=== PATIENT | male | born 1965 | race Two or more races ===

== ENCOUNTER → 2024-03-27 06:16 | Day surgery (SDC) | payer OTHER, SELFPAY ==
[2024-03-27] VITALS (21 sets, daily range): BP systolic 94–135; BP diastolic 64–95; BMI 21.8
[2024-03-27 07:02] LABS: Hematocrit 43.8 % (39.0-52.0); Hemoglobin 15.1 g/dL (13.0-18.0); Mean Corp Hgb Conc. 34.5 g/dL (33.0-37.0); Mean Corpuscular Hgb 29.5 pg (27.0-31.0); Mean Corpuscular Volume 85.5 fL (80.0-94.0); Mean Platelet Volume 9.7 fL (7.4-10.4); Platelet Count 398 10^3/uL (130-400); Red Blood Cell Count 5.12 10^6/uL (4.70-6.10); Red Cell Dist. Width 12.8 % (11.5-14.5)
[2024-03-27 07:12] LABS: APTT 27.2 Sec (23.4-35.0); INR 1.03; PT 13.5 Sec (11.4-14.6)
[2024-03-27 07:26] LABS: Blood Urea Nitrogen 30 mg/dl (9-20); Calcium 10.2 mg/dl (8.4-10.2); Carbon Dioxide 32 mmol/L (22-30); Chloride 95 mmol/L (98-107); Estimated Creatinine Clearance 105 ml/min; Glucose 192 mg/dl (70-99); Potassium 4.6 mmol/L (3.5-5.1); Sodium 135 mmol/L (135-145); eGFR > 60.00
--- NOTE | 2024-03-27 07:48 | W.SUR.PREOP ---
Pre-Operative Surgical Note
-
I have examined this patient prior to the performance of the scheduled procedure.
The patient's condition is unchanged from the time of the current History and
Physical and the patient is able to undergo the scheduled procedure.
[2024-03-27 09:17] LABS: ACT-LR - POC 200 Seconds (116-155)
[2024-03-27 10:24] LABS: ACT-LR - POC 231 Seconds (116-155)
[2024-03-27 10:42] LABS: ALT (SGPT) 21 U/L (0-50); AST (SGOT) 33 U/L (17-59); Albumin 4.3 g/dl (3.5-5.0); Alkaline Phosphatase 198 U/L (38-126); Direct Bilirubin 0.4 mg/dl (0.0-0.4); Total Bilirubin 0.5 mg/dl (0.2-1.3); Total Protein 8.5 g/dl (6.3-8.2)
[2024-03-27 11:00] LABS: Glucose - Point of Care 213 mg/dl (70-99)
[2024-03-27] MEDS: NOVOLOG vial 2 UNITS SC (11:31)
[2024-03-27] MEDS: PLAVIX 300 MG PO (12:08)
[2024-03-27] MEDS: NSS 1000 IV (12:09)
--- NOTE | 2024-03-27 12:10 | SUR.PHASEI ---
Patient transferred to lab director, bedside and telephone report to ROGELIO. left groin sheath site benign. B/L circulation to both feet with doppler. Patient comfortable except for mild discomfort in rt leg. VSS. Plavix to be given in lab director. E C
Gee TALBERT BSN.
[2024-03-27] MEDS: NOVOLOG vial 4 UNITS SC (15:42)
[2024-03-27 15:48] LABS: Glucose - Point of Care 283 mg/dl (70-99)
--- NOTE | 2024-03-27 17:06 | OR.RPT ---
Operative Report
Operative Report
Date of Operation: 03/27/2024
Pre Op Diagnosis:
1.) Critical limb threatening ischemia right lower extremity
2.) Recent open transmetatarsal amputation
3.) Poorly controlled diabetes
4.) Active smoking
Post Op Diagnosis:
1.) Critical limb threatening ischemia right lower extremity
2.) Recent open transmetatarsal amputation
3.) Poorly controlled diabetes
4.) Active smoking
Procedure:
1.) Intravascular lithotripsy to tibioperoneal trunk (3.5 mm x 80 mm E8 shockwave balloon)
2.) Intravascular lithotripsy to proximal peroneal artery (3.5 mm x 80 mm E8 shockwave balloon)
3.) Intravascular lithotripsy to proximal posterior tibial artery (3.5 mm x 80 mm E8 shockwave balloon)
4.) Retrograde balloon angioplasty of proximal posterior tibial artery stenosis (3 mm x 80 mm angioplasty balloon)
5.) Balloon angioplasty of peroneal artery stenosis (3 mm x 40 mm proximal, 2.5 mm x 40 mm distal)
6.) Diagnostic aortobiiliac arteriogram
7.) Diagnostic right lower extremity arteriogram
8.) Ultrasound-guided percutaneous access to the left common femoral artery
9.) Ultrasound-guided RETROGRADE percutaneous access to the right posterior tibial artery
Surgeon: Dong Moon III, MD
Anesthesia: Sedation with local
Fluoroscopy:
51.5 min
145 mGy
27.01 Gy.cm2
Complications: None
Estimated Blood Loss: 50 cc
History and Indications for Procedure: 59-year-old male with critical limb threatening ischemia of the right lower extremity manifested by active infection of the forefoot and recent open transmetatarsal amputation
Procedure in Detail: Gilberto Herrera was correctly identified and placed supine on the operating table. After adequate induction of anesthesia the bilateral groins were prepped and draped in the usual sterile fashion. A timeout was performed with
the nursing and anesthesia staff confirming the patient's identity as well as the nature and laterality of the procedure.
The left common femoral artery was identified under ultrasound guidance. The artery was patent. The superior and inferior aspects of the femoral head were identified with radiographic guidance and marked at the skin level. The proposed puncture site
was infiltrated with local anesthesia. We saved a copy of the ultrasound image to the medical record. Under ultrasound guidance we accessed the left common femoral artery with a micropuncture needle and upsized to a 5 Fr sheath over a SoccerFreakzson wire.
The wire and a Shepherds hook flush catheter were advanced into the distal abdominal aorta and a diagnostic [id number] arteriogram was performed:
AORTO-ILIAC ARTERIOGRAM:
Aorta: Patent with no significant stenosis identified. Peripherally calcified
Right common iliac artery: Peripherally calcified diffusely. Patent with no significant stenosis identified
Right external iliac artery: Patent with no significant stenosis identified
Left common iliac artery: Peripherally calcified. Patent with no significant stenosis identified
Left external iliac artery: Patent with no significant stenosis identified
Under roadmap guidance using a Glidewire and the Shepherds hook catheter we selected the right common iliac artery and then the external iliac artery. A catheter was tracked up and over the aortic bifurcation and placed in the distal external iliac
artery. A diagnostic right lower extremity arteriogram was then performed which demonstrated the following:
RIGHT LOWER EXTREMITY:
Common femoral artery: Patent with no stenosis identified
Profunda femoral artery: Patent with no stenosis identified
Superficial femoral artery: Patent. Mild luminal irregularities seen throughout but no significant stenosis identified.
Popliteal artery: Patent with no significant stenosis identified
Anterior tibial artery: Patent at its origin but occluded shortly thereafter. Distal reconstitution identified at the ankle via peroneal artery collaterals. Small vessel disease identified in the dorsalis pedis artery which was diminutive but
patent.
Tibioperoneal trunk: Occluded
Peroneal artery: Reconstituted proximally. Proximal peroneal with high-grade stenosis. Distal peroneal with focal high-grade stenosis.
Posterior tibial artery: Occluded proximally. Dominant tibial artery. Proximal stenosis identified.
ENDOVASCULAR INTERVENTION: Systemic heparin was administered. Selected the superficial femoral artery and popliteal artery with a Glidewire and shipman's hook catheter. Exchanged out for a 5 Fr 90 sheath over a Storq wire. Under magnification
view and roadmap guidance I made many attempts to cross the tibioperoneal trunk occlusion antegrade. I was unsuccessful. I therefore made the decision to attempt to cross retrograde.
The right foot was prepped and draped in the usual sterile fashion. Under ultrasound guidance I identified the posterior tibial artery at the ankle. I accessed the posterior tibial artery at the ankle retrograde using a micropuncture needle and
then upsized to a 4 [place] sheath. From this approach I navigated a 0.014 Quickcross and 0.014 wire retrograde through the posterior tibial artery and was successful at crossing the TP trunk occlusion. The wire was then snared from above and
pulled out through the 5 [place] sheath in the left femoral artery, thereby establishing femoral artery-tibial artery body floss wire access.
Due to the calcified nature of the arterial disease and in an effort to modify the calcium to achieve maximum luminal gain with endovascular intervention I elected to proceed with intravascular lithotripsy. A 3.5 mm x 80 mm E8 shockwave balloon was
placed across the tibioperoneal trunk disease and proximal posterior tibial artery stenosis under roadmap guidance. Alternating rounds of lithotripsy pulse delivery at sub-nominal pressure and angioplasty at nominal pressure was performed across the
stenosis. In between rounds of pulse delivery and angioplasty the balloon was deflated and repositioned under roadmap guidance. 200 pulses were delivered.
A subsequent arteriogram demonstrated an excellent technical result with a widely patent tibioperoneal trunk and posterior tibial artery and no significant residual stenosis. Under roadmap guidance I then selected the peroneal artery from above.
The 0.014 wire was positioned in the distal peroneal artery. I then performed intravascular lithotripsy on the proximal peroneal artery and the tibioperoneal trunk using the remaining 200 pulses. Alternating rounds of lithotripsy pulse delivery at
sub-nominal pressure and angioplasty at nominal pressure was performed.
Subsequent arteriogram demonstrated an excellent technical result with a widely patent tibioperoneal trunk. There was some recurrent stenosis in the proximal posterior tibial artery and once again identified or 2 areas of focal stenosis in the
distal peroneal artery. I treated the distal peroneal artery stenoses with a 2.5 x 40 mm angioplasty balloon, holding each inflation at nominal pressure for 1 minute. The proximal posterior tibial artery stenosis was treated with a 3 mm x 80 mm
angioplasty balloon brought into position retrograde from the posterior tibial artery access. While this balloon was in place, in an effort to protect the peroneal artery I simultaneously inflated a 3 mm x 40 mm angioplasty balloon in the proximal
peroneal artery.
Subsequent arteriogram demonstrated an excellent technical result. The tibioperoneal trunk was patent with no significant residual stenosis identified. The posterior tibial artery and peroneal artery were both patent. The anterior tibial artery
reconstituted via the peroneal artery and continued across the ankle into the foot and forefoot. An intact pedal arch was identified. As expected, sluggish flow was seen in the posterior tibial artery around the access site at the ankle.
Satisfied with this result we concluded the procedure. The sheath tip was pulled back into the left external iliac artery. Protamine was administered. The 4 [place] sheath at the ankle was pulled immediately and gentle pressure was held over the
puncture site for 10 minutes. Hemostasis was achieved. A sterile dressing was applied. The patient went to the recovery area with the 5 [place] sheath in the left groin with a plan to pull it in the recovery area.
The patient tolerated the procedure well and was taken to the recovery area in stable condition. He had robust Doppler signals at the posterior tibial artery and dorsalis pedis artery in the right foot at the conclusion of the case
Attestation: I was present and responsible for the entire procedure.
Signed:
Dong Moon III, MD
[facility]
[phone] (iqph)
== END | disposition home or self-care (01) ==
LOC: CATH 06:16
PROVIDERS: ATTENDING PHYSICIAN Surgery Vascular Surgery; FAMILY PHYSICIAN Family Medicine
DX: I70.229 Atherosclerosis of native arteries of extremities with rest pain, unspecified extremity (principal); Z89.421 Acquired absence of other right toe(s); E11.65 Type 2 diabetes mellitus with hyperglycemia; F17.200 Nicotine dependence, unspecified, uncomplicated; I10 Essential (primary) hypertension
CPT/HCPCS: C9772; 75625; 75716; 76937; 80053; 82248; 82962; 85027; 85610; 85730; 86850; 86900; 86901; 93005; C1725; C1769; C1773; C1894; Q9967

== ENCOUNTER → 2024-05-04 11:18 | Outpatient (REF) | payer OTHER, SELFPAY | LOC: RAD 11:18 | PROVIDERS: ATTENDING PHYSICIAN Surgery Vascular Surgery; FAMILY PHYSICIAN Family Medicine | DX: I77.9 Disorder of arteries and arterioles, unspecified (principal) | CPT/HCPCS: 93922; 93925 ==

== ENCOUNTER 2024-07-24 08:51 | Day surgery (SDC) | payer OTHER, SELFPAY ==
[2024-07-24] VITALS (20 sets, daily range): BP systolic 114–155; BP diastolic 70–108; BMI 20.8
[2024-07-24 09:39] LABS: Glucose - Point of Care 258 mg/dl (70-99)
[2024-07-24 09:41] LABS: Hematocrit 40.1 % (39.0-52.0); Hemoglobin 13.7 g/dL (13.0-18.0); Mean Corp Hgb Conc. 34.2 g/dL (33.0-37.0); Mean Corpuscular Hgb 29.7 pg (27.0-31.0); Mean Corpuscular Volume 86.8 fL (80.0-94.0); Mean Platelet Volume 10.2 fL (7.4-10.4); Platelet Count 276 10^3/uL (130-400); Red Blood Cell Count 4.62 10^6/uL (4.70-6.10); Red Cell Dist. Width 13.5 % (11.5-14.5); White Blood Cell Count 9.8 10^3/uL (4.8-10.8)
[2024-07-24 09:51] LABS: INR 1.03; PT 13.3 Sec (11.4-14.6)
[2024-07-24 09:52] LABS: APTT 24.5 Sec (23.4-35.0); Blood Urea Nitrogen 26 mg/dl (9-20); Calcium 9.7 mg/dl (8.4-10.2); Carbon Dioxide 33 mmol/L (22-30); Chloride 96 mmol/L (98-107); Estimated Creatinine Clearance 101 ml/min; Glucose 272 mg/dl (70-99); Potassium 4.6 mmol/L (3.5-5.1); Sodium 136 mmol/L (135-145); eGFR > 60.00
[2024-07-24] MEDS: NOVOLOG vial 4 UNITS SC (09:54)
[2024-07-24 12:52] LABS: Glucose - Point of Care 120 mg/dl (70-99)
[2024-07-24] MEDS: PLAVIX 300 MG PO (13:16)
[2024-07-24 14:35] LABS: ALT (SGPT) 47 U/L (0-50); AST (SGOT) 37 U/L (17-59); Alkaline Phosphatase 144 U/L (38-126); Direct Bilirubin 0.2 mg/dl (0.0-0.4); Total Bilirubin 0.2 mg/dl (0.2-1.3); Total Protein 7.3 g/dl (6.3-8.2)
[2024-07-24] MEDS: TYLENOL 650 MG PO (16:16)
--- NOTE | 2024-07-24 17:04 | OR.RPT ---
Operative Report
Operative Report
Date of Operation: 07/24/2024
Pre Op Diagnosis: Chronic limb threatening ischemia, right lower extremity with poorly healing transmetatarsal amputation
Post Op Diagnosis: Chronic limb threatening ischemia, right lower extremity with poorly healing transmetatarsal amputation
Procedure:
1.) Balloon angioplasty of right posterior tibial artery occlusion (3.5 mm x 150 mm angioplasty balloon)
2.) Intravascular lithotripsy to right anterior tibial artery occlusion (3 mm x 80 mm E8 shockwave balloon)
3.) Balloon angioplasty to right anterior tibial artery (3 mm x 120 mm angioplasty balloon)
4.) Ultrasound-guided percutaneous RETROGRADE arterial access to the right dorsalis pedis artery
5.) Ultrasound-guided percutaneous ANTEGRADE access to the right proximal superficial femoral artery
6.) Diagnostic right lower extremity arteriogram
Surgeon: Dong Moon III, MD
Grill Associate: Angelita Garces MD PGY-8
Anesthesia: Sedation with local
Fluoroscopy:
51 min
87 mGy
14.26 Gy.cm2
Complications: None
Estimated Blood Loss: 25 cc
History and Indications for Procedure: 59-year-old male with chronic limb threatening ischemia of the right lower extremity manifested by a poorly healing transmetatarsal amputation
Procedure in Detail: Gilberto Herrera was correctly identified and placed supine on the operating table. After adequate induction of anesthesia the bilateral groins were prepped and draped in the usual sterile fashion. A timeout was performed with
the nursing and anesthesia staff confirming the patient's identity as well as the nature and laterality of the procedure.
The right common femoral artery, femoral bifurcation and proximal superficial femoral artery were identified under ultrasound guidance. The arteries were patent. The superior and inferior aspects of the femoral head were identified with radiographic
guidance and marked at the skin level. The proposed puncture site was infiltrated with local anesthesia. We saved a copy of the ultrasound image to the medical record. Under ultrasound guidance we accessed the very proximal superficial femoral
artery with a micropuncture needle in an antegrade direction and upsized to a 5 Fr sheath over a Bentson wire. A diagnostic RIGHT lower extremity arteriogram was then performed which demonstrated the following:
RIGHT LOWER EXTREMITY:
Superficial femoral artery: Patent. Areas of mild stenosis identified.
Popliteal artery: Patent with no significant stenosis identified
Anterior tibial artery: Patent very proximal segment but occluded shortly thereafter. Reconstitutes at the ankle
Tibioperoneal trunk: Patent
Peroneal artery: Occluded
Posterior tibial artery: Patent stump but then occludes. Reconstitutes distally as the dominant tibial artery runoff vessel. Continues across the ankle to form plantar branches in the foot.
ENDOVASCULAR INTERVENTION: Systemic heparin was administered. Selected the posterior tibial artery under roadmap guidance with Quickcross catheter and glidewire. The occlusion was crossed with a Quickcross and Glidewire. The wire and catheter were
advanced into the distal posterior tibial artery and subtraction angio confirmed proper position in the true lumen. Exchanged out for a 0.014 wire. A 3.5 mm angioplasty balloon was placed across the posterior tibial artery occlusion under roadmap
guidance. The balloon was inflated to nominal pressure, held in place for 4-minute inflation and then deflated and removed over the wire. Subsequent arteriogram demonstrated excellent technical result with a widely patent posterior tibial artery,
brisk flow through the posterior tibial artery which continued across the ankle and into the plantar branches. No significant residual stenosis identified.
We then focused our attention on treating the anterior tibial artery occlusion. Under roadmap guidance using the Quickcross catheter and Glidewire we selected the anterior tibial artery origin. With the Quickcross and Glidewire we were only able
to cross to the mid bhakta but could not advance the wire or catheter further. Under ultrasound guidance I gained access to the distal anterior tibial artery at the ankle sulcus with a micropuncture needle in a retrograde fashion. This was then
upsized to a 4 [place] sheath over a Bentson wire. Using a 0.014 Quickcross and Mongo wire we were able to navigate retrograde through the anterior tibial artery and into the popliteal artery. The Mongo wire was then snared in the popliteal artery
from above and pulled out through the right femoral artery sheath thereby establishing through and through wire access. The anterior tibial artery occlusion was predilated with a long 2 mm angioplasty balloon. Following this I then elected to
treat the calcified tibial disease with intravascular lithotripsy. Due to the heavily calcified nature of the anterior tibial artery disease and in an effort to modify the calcium to achieve maximum luminal gain with endovascular intervention I
elected to proceed with intravascular lithotripsy. A 3 mm x 80 mm Shockwave balloon was placed across the stenosis under roadmap guidance. Alternating rounds of lithotripsy pulse delivery at sub-nominal pressure and angioplasty at nominal pressure
was performed across the entire anterior tibial artery from the sheath tip at the distal anterior tibial artery access site to the origin of the anterior tibial artery. In between rounds of pulse delivery and angioplasty the balloon was deflated and
repositioned under roadmap guidance. All 400 pulses were delivered. Following this I then angioplastied the entire anterior tibial artery using a 3 mm x 120 mm angioplasty balloon. Multiple inflations were performed holding each for 2 minutes in
order to treat the entire anterior tibial artery once again.
COMPLETION ARTERIOGRAM: Excellent technical result. Patent anterior tibial artery with flow demonstrated to the access site at the distal anterior tibial artery. Expected sluggish flow around the pedal access sheath. Widely patent posterior
tibial artery with brisk flow.
Satisfied with this result we concluded the procedure. Protamine was administered. The 5 [place] sheath in the right groin and the pedal access sheath at the right ankle were both pulled. Direct manual pressure was held over the puncture sites.
Hemostasis was achieved.
The patient tolerated the procedure well and was taken to the recovery area in stable condition.
Attestation: I was present and responsible for the entire procedure.
Signed:
Dong Moon III, MD
[facility] Surgery
[phone] (ndzj)
== END 2024-07-24 18:43 | disposition home or self-care (01) ==
LOC: CATH 08:51
PROVIDERS: ATTENDING PHYSICIAN Surgery Vascular Surgery; FAMILY PHYSICIAN Family Medicine
DX: I70.221 Atherosclerosis of native arteries of extremities with rest pain, right leg (principal); Z89.421 Acquired absence of other right toe(s); I10 Essential (primary) hypertension; E11.9 Type 2 diabetes mellitus without complications; Z79.82 Long term (current) use of aspirin; Z79.02 Long term (current) use of antithrombotics/antiplatelets; Z79.899 Other long term (current) drug therapy; Z79.4 Long term (current) use of insulin
CPT/HCPCS: C9772; 76937; 80053; 82248; 82962; 85027; 85610; 85730; C1725; C1769; C1894; C9765; Q9967

== ENCOUNTER → 2024-08-28 11:10 | Outpatient (REF) | payer OTHER, SELFPAY | LOC: RAD 11:10 | PROVIDERS: ATTENDING PHYSICIAN Surgery Vascular Surgery | DX: I77.9 Disorder of arteries and arterioles, unspecified (principal) | CPT/HCPCS: 93922; 93925 ==

== ENCOUNTER 2025-03-01 08:05 | Day surgery (SDC) | payer OTHER, SELFPAY ==
[2025-03-01] VITALS (27 sets, daily range): BP systolic 12–172; BP diastolic 63–97; BMI 21.7
[2025-03-01 08:26] LABS: Hematocrit 42.8 % (39.0-52.0); Hemoglobin 14.3 g/dL (13.0-18.0); Mean Corp Hgb Conc. 33.4 g/dL (33.0-37.0); Mean Corpuscular Hgb 29.6 pg (27.0-31.0); Mean Corpuscular Volume 88.6 fL (80.0-94.0); Mean Platelet Volume 9.4 fL (7.4-10.4); Platelet Count 303 10^3/uL (130-400); Red Blood Cell Count 4.83 10^6/uL (4.70-6.10); Red Cell Dist. Width 15.6 % (11.5-14.5); White Blood Cell Count 12.2 10^3/uL (4.8-10.8)
[2025-03-01 08:48] LABS: INR 0.97; PT 13.1 Sec (11.4-14.6)
[2025-03-01 08:49] LABS: APTT 26.2 Sec (23.4-35.0)
[2025-03-01 08:58] LABS: Blood Urea Nitrogen 15 mg/dl (9-20); Calcium 9.6 mg/dl (8.4-10.2); Carbon Dioxide 34 mmol/L (22-30); Chloride 105 mmol/L (98-107); Glucose 44 mg/dl (70-99); Potassium 4.3 mmol/L (3.5-5.1); Sodium 141 mmol/L (135-145); eGFR > 60.00
[2025-03-01 09:09] LABS: Glucose - Point of Care 45 mg/dl (70-99)
[2025-03-01] MEDS: DEXTROSE 50% SYRINGE 12.5 GRAMS IV (09:10)
[2025-03-01] MEDS: NSS 500 IV (09:11)
[2025-03-01 09:47] LABS: Glucose - Point of Care 91 mg/dl (70-99)
[2025-03-01 10:54] LABS: Glucose - Point of Care 62 mg/dl (70-99)
--- NOTE | 2025-03-01 11:40 | W.SUR.POST ---
Surgical Immediate Post Op
Note
Pre Op Diagnosis: PAD
Post Op Diagnosis: PAD
Procedure Performed: RLE arteriogram, balloon angioplasty and stent placement to TP trunk and PT
Primary Surgeon: Red
Secondary Surgeons: Johanna PGY5
Anesthesia: local and sedation
Estimated Blood Loss: <2cc
Fluids: See anesthesia flow sheet
Drains/Shunts: none
Specimens/Cultures: none
Doppler/Duplex/Angio (Y/N): Y
Complications: None
Operative Findings: + doppler PT
[2025-03-01 11:52] LABS: Glucose - Point of Care 105 mg/dl (70-99)
[2025-03-01 12:27] LABS: Glucose - Point of Care 81 mg/dl (70-99)
[2025-03-01] MEDS: TYLENOL 650 MG PO (13:53)
[2025-03-01] MEDS: NSS 1000 IV (13:55)
--- NOTE | 2025-03-01 14:31 | OR.RPT ---
Operative Report
Operative Report
Date of Operation: 03/01/2025
Pre Op Diagnosis:
1. Poorly healing right transmetatarsal amputation
2. Chronic limb threatening ischemia
3. Diabetes with lower extremity arterial disease
Post Op Diagnosis:
1. Poorly healing right transmetatarsal amputation
2. Chronic limb threatening ischemia
3. Diabetes with lower extremity arterial disease
Procedure:
1.) Bioabsorbable drug-eluting scaffold stent placement to the right tibioperoneal trunk (3.75 mm x 38 mm Russo Esprit)
2.) Bioabsorbable drug-eluting scaffold stent placement to the right proximal posterior tibial artery (overlapping 3.5 mm x 28 mm and 3.5 mm x 28 mm Russo Esprit)
3.) Diagnostic right lower extremity arteriogram
4.) Intravascular ultrasound right popliteal artery, tibioperoneal trunk and posterior tibial artery
5.) Ultrasound-guided percutaneous ANTEGRADE access to the right superficial femoral artery origin
Surgeon: Dong Moon III, MD
Humanities Professor: Markie Spencer MD, PGY5
Anesthesia: Sedation with local
Fluoroscopy:
17.6 min
58 mGy
7.33 gy.cm2
Complications: None
Estimated Blood Loss: Less than 10 cc
History and Indications for Procedure: 59-year-old male with poorly controlled diabetes and known lower extremity peripheral arterial disease. Prior lower extremity arterial interventions. He has a poorly healing transmetatarsal amputation wound.
Procedure in Detail: Gilberto Herrera was correctly identified and placed supine on the operating table. After adequate induction of anesthesia the bilateral groins were prepped and draped in the usual sterile fashion. A timeout was performed with
the nursing and anesthesia staff confirming the patient's identity as well as the nature and laterality of the procedure.
The right common femoral artery was identified under ultrasound guidance. The artery was patent. The superior and inferior aspects of the femoral head were identified with radiographic guidance and marked at the skin level. The proposed puncture
site was infiltrated with local anesthesia. Under ultrasound guidance we accessed the origin of the superficial femoral artery with a micropuncture needle in an antegrade fashion and upsized to a 5 Fr sheath over a Bentson wire. A diagnostic right
lower extremity arteriogram was then performed which demonstrated the following:
RIGHT LOWER EXTREMITY:
Superficial femoral artery: Scattered arterial calcification throughout. Areas of mild scattered stenosis identified.
Popliteal artery: Scattered arterial calcification. Patent above, behind and below the knee with no significant stenosis identified
Anterior tibial artery: Occluded
Tibioperoneal trunk: Patent. High-grade stenosis identified
Peroneal artery: Patent
Posterior tibial artery: High-grade proximal stenosis identified. Patent as the dominant tibial artery runoff
ENDOVASCULAR INTERVENTION: Systemic heparin was administered. Exchanged out for a 5 Fr 45 cm sheath over a Bentson wire and placed the radiopaque tip in the popliteal artery. Selected the tibioperoneal trunk and posterior tibial artery under roadmap
guidance with a 0.014 SPEX catheter and Glidewire advantage. The tibioperoneal trunk and posterior tibial artery stenoses were crossed with this approach. The wire and catheter were advanced into the posterior tibial artery distal to the disease.
An arteriogram was performed confirming proper position within the posterior tibial artery. With the 014 wire position I then performed intravascular ultrasound on the popliteal artery, tibioperoneal trunk and posterior tibial artery.
IVUS:
Popliteal artery behind the knee: Peripherally calcified, 6 mm diameter
Popliteal artery below the knee: Peripherally calcified, 4.5 mm diameter
Tibioperoneal trunk: Peripherally calcified. Soft plaque. Luminal diameter 4 mm
Posterior tibial artery: Peripherally calcified. Luminal diameter 3.2 mm proximal. 3.5 mm further distal
Under roadmap guidance I then performed intervention on the posterior tibial artery and tibioperoneal trunk. This was done with overlapping Russo Esprit drug-eluting bioabsorbable scaffold as follows:
The tibioperoneal trunk and proximal posterior tibial artery stenosis were predilated with a 4 mm x 60 mm angioplasty balloon. Under roadmap guidance I then brought to position a 3.5 mm x 38 mm Russo Esprit. This was positioned across the
proximal posterior tibial artery stenosis and deployed by inflating the balloon to the desired pressure. The stent was then postdilated with a 4 mm angioplasty balloon. Following this I brought into position a 3.75 mm x 38 mm Russo Esprit stent
and positioned this across the tibioperoneal trunk stenosis, slightly overlapping with the first stent. The stent was deployed in the desired location by inflating the balloon to the desired pressure. Following this the stent was postdilated with
a 4 mm angioplasty balloon. Subsequent arteriogram demonstrated widely patent stents but there was an area of focal dissection in the posterior tibial artery just distal to the stents. This area was treated with a 3.5 mm x 28 mm Russo Esprit.
COMPLETION ARTERIOGRAM: Excellent technical result. Widely patent tibioperoneal trunk and proximal posterior tibial artery stents with brisk flow and no significant residual stenosis remaining. The posterior tibial artery was widely patent. The
posterior tibial artery across the ankle to form plantar branches in the foot which supplied the margin of the transmetatarsal amputation. The peroneal artery was patent but flow leg behind.
Satisfied with this result we concluded the procedure. Protamine was administered. The sheath was removed and direct manual pressure was held over the puncture site until hemostasis was achieved. A sterile dressing was applied.
The patient tolerated the procedure well and was taken to the recovery area in stable condition.
Attestation: I was present and responsible for the entire procedure.
Signed:
Dong Moon III, MD
Vascular Surgery
[facility]
== END 2025-03-01 18:07 | disposition home or self-care (01) ==
LOC: CATH 08:05
PROVIDERS: ATTENDING PHYSICIAN Surgery Vascular Surgery; PRIMARYCARE PHYSICIAN Family Medicine
DX: E11.51 Type 2 diabetes mellitus with diabetic peripheral angiopathy without gangrene (principal); I70.221 Atherosclerosis of native arteries of extremities with rest pain, right leg; Z89.421 Acquired absence of other right toe(s); I10 Essential (primary) hypertension; Z79.82 Long term (current) use of aspirin; Z79.02 Long term (current) use of antithrombotics/antiplatelets; Z79.4 Long term (current) use of insulin; F17.210 Nicotine dependence, cigarettes, uncomplicated
CPT/HCPCS: 37230; 37234; 75710; 37252; 80048; 82962; 85027; 85610; 85730; 93005; C1725; C1753; C1769; C1874; C1894; Q9967